=== PATIENT | female | born 1960 | race Caucasian/White ===

== ENCOUNTER 2021-02-21 12:53 | Emergency (ER) | payer OTHER, MEDICAID ==
[~2021-02-21] VITALS: Ht 167.6 cm; Wt 63.5 kg
[2021-02-21] MEDS ORDERED: PERCOT PO (17:28)
[2021-02-21 18:01] VITALS: BP 130/84
[2021-02-21] MEDS ORDERED: [UNRECOGNIZED DRUG - CODE] XX (18:09)
== END 2021-02-21 18:10 | disposition home or self-care (01) ==
LOC: ER 12:53 → EDBD 12:53 → ER 18:10
DX: S82.64XA Nondisplaced fracture of lateral malleolus of right fibula, initial encounter for closed fracture (principal); Z88.0 Allergy status to penicillin; Z88.6 Allergy status to analgesic agent; Z88.5 Allergy status to narcotic agent; Z88.8 Allergy status to other drugs, medicaments and biological substances; X58.XXXA Exposure to other specified factors, initial encounter; Y93.89 Activity, other specified; Y92.89 Other specified places as the place of occurrence of the external cause; Y99.8 Other external cause status
CPT/HCPCS: 29515; 73610